=== PATIENT | male | born 1945 | race Caucasian/White ===

== ENCOUNTER 2016-08-14 13:16 | Observation (INO) ==
--- NOTE | 2016-08-14 14:38 | Emergency Department Note ---
START Narrative - START START: I examined this patient and my medical decision-making was reviewed with the PRINT DESIGNER/PA/Advanced Practice Nurse/Resident Physician. I agree with the documented findings, disposition and treatment plan as described except to the extent set forth below. ED attending note: Patient seen with emergency medicine resident Dr. Castro. Please see a copy of his note for details of the H&P, evaluation, management and disposition of this patient. We independently had [id number] contact with the patient Briefly 70-year-old male negative stress test about a year or so ago, presents with cough and some chest discomfort. Physical examination is benign. EKG shows ischemic changes. Troponin chest x-ray are pending. Disposition pending. Patient stable.
[2016-08-14 15:09] LABS: BUN/Creatinine Ratio 17 (6-26); Blood Urea Nitrogen 14 mg/dL (8-26); Calcium 8.7 mg/dL (8.6-10.8); Carbon Dioxide 25 mEq/L (19-29); Chloride 106 mEq/L (98-109); Glucose 112 mg/dL (70-99); Osmolality,Calculated 287 (280-300); Potassium 3.9 mEq/L (3.5-4.5); Sodium 138 mEq/L (136-145); eGFR For African Americans > 60 (> 60); eGFR For Non-African Americans > 60 (> 60)
--- NOTE | 2016-08-14 16:15 | Emergency Department Note ---
Disposition Clinical Impression: Upper respiratory infection Qualifiers: URI type: unspecified URI Qualified Code(s): J06.9 - Acute upper respiratory infection, unspecified Chest pain Qualifiers: Chest pain type: unspecified Qualified Code(s): R07.9 - Chest pain, unspecified Disposition: Admitted As Inpatient Condition: Fair Referrals: NO,PCP [Primary Care Provider] - Forms: ED Satisfaction Letter Time of Disposition: 17:04 URI/Sore Throat HPI - General Chief Complaint: ED Upper Respiratory Infection Stated Complaint: COUGH Source: patient Limitations: no limitations Nursing Notes Reviewed: Yes Vital Signs Reviewed: Yes - History of Present Illness HPI Narrative: A 70 year old male presents to the ED with the complaint of a cough that began about a week ago. He states that in the last two or three days the cough has gotten worse, is coughing up more sputum, and he now has a sore throat. About an hour before he came into the ED, he states that he began to have chest pain. He states that he does have some abdominal pain. He denies nausea vomiting, diarrhea, and constipation. He has no shortness of breath and the chest pain is not worse with exertion. He has a history of HTN and hyperlipidemia but he has not been on medications for a while. Pt Subjective Complaint: cough, nasal congestion Onset (ago): week(s) Duration: gradually worsening Severity: moderate Improves with: nothing - Related Data Home Medications Medication Instructions Recorded Confirmed No Known Home Drugs 08/14/16 08/14/16 Allergies Allergy/AdvReac Type Severity Reaction Status Date / Time Penicillins Allergy Anaphylaxis Verified 08/14/16 13:18 All systems ED: reviewed and negative except as stated. URI PMH - Past Medical History Medical history: Reports: hypertension Psychiatric history: Reports: no psych history - Social History Smoking Status: Never smoker Alcohol use: Reports: none Drug use: Reports: none Physical Exam - General Limitations: no limitations General appearance: alert, in no apparent distress - Head Head exam: atraumatic, normocephalic, normal inspection - Eye Eye exam: Present: normal appearance, PERRL, EOMI - ENT ENT exam: normal exam, normal oropharynx, mucous membranes moist - Neck Neck exam: Present: normal inspection, full ROM, trachea midline - Chest Chest inspection: Present: normal inspection, symmetric chest wall rise - Respiratory Respiratory exam: Present: normal lung sounds bilaterally - Cardiovascular Cardiovascular exam: Present: regular rate, normal rhythm, normal heart sounds - Abdominal Exam Abdominal exam: Present: soft, Non-Tender. Absent: tenderness, distention, guarding, rebound, rigidity - Extremities Exam Extremities exam: Present: normal inspection, full ROM. Absent: tenderness, pedal edema - Back Exam Back exam: Present: normal inspection, full ROM. Absent: tenderness - Neurological Exam Neurological exam: Present: alert, oriented X3 - Psychiatric Psychiatric exam: Present: normal affect, normal mood - Skin Skin exam: Present: warm, dry, intact, normal color Course Course Narrative: Patient seen and examined. Cough for the last few days along with some chest pain today. He is asymptomatic at this time. States only lasted for a few seconds. Past medical history of hypertension and hyperlipidemia for which he is supposed be on medication but has not been able to follow-up due to not being able to afford the co-pay. Cardio pulmonary workup initiated. - Reevaluation(s) Reevaluation #1: Labs, chest x-ray unremarkable. We will have the social secretary Aisha talk with him about his difficulties with healthcare access. Due to his poor follow-up as well as the chest pain he recently had and multiple prior episodes of chest pain in which sound more anginal, we will call hospitalist for admission for chest pain rule out ACS. His last stress test was 5-6 years ago and he has poor access to his healthcare. Time: 16:24 Vital Signs Temperature 97.8 F 08/14/16 13:18 Pulse Rate 93 08/14/16 13:18 Respiratory Rate 18 08/14/16 13:18 Blood Pressure 162/101 08/14/16 13:18 O2 Sat by Pulse Oximetry 95 08/14/16 13:18 Temperature 97.8 F 08/14/16 13:18 Pulse Rate 93 08/14/16 13:18 Respiratory Rate 18 08/14/16 13:18 Blood Pressure 162/101 08/14/16 13:18 O2 Sat by Pulse Oximetry 95 08/14/16 13:18 Oxygen Delivery Oxygen Delivery Room Air Upper Respiratory Infection - Medical Records Medical records reviewed: Yes I reviewed the patient's medical records. - Lab Data Lab results reviewed: Yes I reviewed the patient's lab results. Result diagrams: 08/14/16 14:42 Lab Results 08/14/16 08/14/16 Range/Units 14:42 14:42 Sodium 138 (136-145) mEq/L Potassium 3.9 (3.5-4.5) mEq/L Chloride 106 (98-109) mEq/L Carbon Dioxide 25 (19-29) mEq/L BUN 14 (8-26) mg/dL Creatinine 0.84 (0.72-1.25) mg/dL Est GFR ( Amer) > 60 (> 60) Est GFR (Non-Af Amer) > 60 (> 60) BUN/Creatinine Ratio 17 (6-26) Glucose 112 H (70-99) mg/dL Calculated Osmolality 287 (280-300) Calcium 8.7 (8.6-10.8) mg/dL Troponin I 0.01 (0-0.03) ng/mL - Radiology Data Radiology results reviewed: Yes I reviewed the patient's radiology results. - EKG Data EKG attestation: Yes I reviewed and interpreted this EKG. EKG results narrative: EKG done at 1508 shows sinus rhythm with a rate of 69 beats per minute. No acute ST elevation or depression. There is T-wave inversion in leads 3 and V3. Normal axis. Right bundle branch block present. Unchanged from prior EKG done 12/05/2010.
[2016-08-14] MEDS ORDERED: Acetaminophen 325 MG TABLET PO PRN (19:50)
[2016-08-14] MEDS ORDERED: Ondansetron ODT 4 MG TAB.RAPDIS SL PRN (19:50)
[2016-08-14] MEDS ORDERED: Naloxone 0.4 MG/ML INJ IVP PRN (19:50)
--- NOTE | 2016-08-14 21:56 | Internal Med History&Physical ---
Date of Encounter: 08/14/16 Time of Encounter: 21:51 Assessment and Plan (1) Upper respiratory infection Current visit: Yes Status: Acute most likely viral supportive care Qualifiers: URI type: unspecified URI Qualified Code(s): J06.9 - Acute upper respiratory infection, unspecified (2) Chest pain Current visit: Yes Status: Acute stress test in AM check lipid panel and TSH Qualifiers: Chest pain type: unspecified Qualified Code(s): R07.9 - Chest pain, unspecified Internal Medicine - H&P: HPI Admitted From: Emergency Dept Plans for Post Hospital Care: Home History of present illness: Mr. Morocho is a 70 year old male with a past medical history of HTN and hyperlipidemia who presents with a one week history of cough. He was previously admitted with walking pneumonia with a similar cough. He had one episode of chest pain today that alsted a few minutes. The pain was substernal and pressure -like and lasted for a few minutes. It was not extertional and went away on its own. He has had increased mucus production with his cough and has just started having a sore throat today. Past Med Surg Social Fam HX - Past Medical History Medical history: hyperlipidemia, hypertension Psychiatric history: no psych history - Social History Smoking Status: Never smoker Smokeless Tobacco Status: No Alcohol use: none Drug use: none - Family History Mother Living Status: Cause of : old age Hx Family Cardiac Disorders: Yes (bradycardia) Hx Family Respiratory Disorders: No Hx Family Cancer: No Hx Family GI Disorders: No Hx Family Genitourinary Disorders: No Hx Family Endocrine Disorder: No Hx Family Musculoskeletal Disorders: No Hx Family Neuromuscular Disorders: No Hx Family Neurologic Disorders: No Hx Family HEENT Disorders: No Hx Family Autoimmune Disorders: No Hx Family Reproductive Disorders: No Hx Family Psychosocial Disorders: No Hx Family Medical Disorders: No Father Living Status: Cause of : blood infection Hx Family Cardiac Disorders: Yes (heart valve replacment) Hx Family Respiratory Disorders: No Hx Family Cancer: No Hx Family GI Disorders: No Hx Family Genitourinary Disorders: No Hx Family Endocrine Disorder: Yes (DM) Hx Family Musculoskeletal Disorders: No Hx Family Neuromuscular Disorders: No Hx Family Neurologic Disorders: No Hx Family HEENT Disorders: No Hx Family Autoimmune Disorders: No Hx Family Reproductive Disorders: No Hx Family Psychosocial Disorders: No Hx Family Medical Disorders: No Internal Medicine - H&P: Meds No Known Home Drugs 08/14/16 [History] Allergies Penicillins Allergy (Verified 08/14/16 13:18) Anaphylaxis All Systems PM: A 10-system review of systems was performed and is negative for pertinent findings except as documented above in the HPI. - Constitutional Constitutional: no chills, no fever(s), no night sweats - EENT Eyes: no change in vision, no discharge, no pain, no photophobia Ears: no ear discharge, no ear pain, no tinnitus Nose, mouth and throat: sore throat, no dysphagia, no nasal discharge, no neck pain - Cardiovascular Cardiovascular ROS IM: chest pain, no diaphoresis, no dyspnea, no lightheadedness, no palpitations, no syncope - Respiratory Respiratory: cough, no dyspnea, no wheezing, no excessive phlegm production - Gastrointestinal Gastrointestinal: no abdominal pain, no diarrhea, no hematemesis, no hematochezia, no melena, no nausea, no vomiting - Genitourinary Genitourinary ROS male: no dysuria - Musculoskeletal Musculoskeletal ROS IM: no arthralgias, no myalgias, no numbness, no tingling - Integumentary Integumentary IM: no rash, no unusual bruising - Neurological Neurological ROS: no confusion, no convulsions, no focal weakness, no numbness, no tingling, no tremor(s) - Hematologic/Lymphatic Hematologic/Lymphatic: no easy bruising - Constitutional Vitals: Temp Pulse Resp BP Pulse Ox 98.1 F 68 14 144/73 97 08/14/16 19:22 08/14/16 19:22 08/14/16 19:22 08/14/16 19:22 08/14/16 19:22 General appearance: Present: cooperative, A&O X 3, answers questions appropriately - Head Head exam: Present: atraumatic, normocephalic - Eye Eye exam: Present: PERRL, conjuntiva pink, sclera anicteric Pupils: Present: PERRL - Neck Neck exam general surgery: Present: supple, trachea midline. Absent: lymphadenopathy - Respiratory Respiratory exam: Present: CTAB. Absent: accessory muscle use, rales, rhonchi, wheezes - Cardiovascular Cardiovascular exam: Present: RRR, +S1, +S2. Absent: diastolic murmur, gallop, rubs, systolic murmur - GI/Abdominal GI/Abdominal exam: Present: normal bowel sounds, soft, no peritoneal signs. Absent: distended, tenderness - Extremities Exam Extremities exam: Present: warm, radial pulses palpable and symetrical. Absent : calf tenderness, cyanotic, pedal edema - Neurological Exam Neurological exam: Present: CN II-XII intact, oriented X3, no focal deficits. Absent: pronater drift, facial droop, speech deficit - Skin Skin exam: Present: dry, intact Internal Med - H&P Results - Labs CBC & Chem 7: 08/14/16 14:42 Labs: Cardiac Enzymes 08/14/16 Range/Units 20:25 Troponin I 0.00 (0-0.03) ng/mL
[2016-08-14] MEDS ORDERED: GuaiFENesin/Codeine Oral Soln 5 ML UDC PO PRN (21:58)
[2016-08-15 05:56] LABS: Chol/HDL Ratio 5.4 (0-4.9)
[2016-08-15 06:06] LABS: Thyroid Stimulating Hormone 2.584 mcIU/mL (0.350-4.840)
[2016-08-15] MEDS ORDERED: Regadenoson 0.4 MG/5 ML SYRINGE IVP ONE (06:48)
[2016-08-15 11:44] VITALS: BP 165/98
--- NOTE | 2016-08-15 13:06 | Nuclear Medicine Stress Report ---
Regadenoson Nuclear Stress Name: Eduard Morocho Date of Study: 08/15/2016 Date: 1945 Ht: 68.0 in Medical Record#: [id number] Age: 70 Wt: 150.0 lb Gender: Male Order #: [id number] Location: [facility] Room: [facility] Supervising Provider: Albert Loo CNP Reading Physician: Caryn Sepulveda DO Ordering Physician: Mirella Alfonso CNP Primary Care Physician: Bashir Galloway DO Stress Technologist: Ralph Lewis, CASINO CAGE MANAGER, [facility] Electric Train Driver: Shawn Win Indications: Chest Pain Impression: Perfusion imaging was negative for ischemia or infarct. Pharmacologic ECG was negative for ischemia at the level of heart rate achieved. Gated EF = >70%. Stress Test Summary: Stress Test Type: Pharmacologic Regadenoson 0.4mg/5ml given IV Baseline Information: Initial Heart Rate: 85 Blood Pressure: 150/82 Stress Information: Stress Time: 4 min 00 sec Test Terminated Due to (primary): As per protocol Maximum Blood Pressure: 100/64 Maximum Heart Rate: 90 Percent Maximum Heart Rate Achieved: 60 Double Product: 9000 METS Reached: 1 Symptoms: Lightheadness, Nausea Nuclear Summary: SPECT myocardial perfusion imaging using Tc99m Sestamibi given intravenously was performed at rest and following cardiac stress testing. The resting images were obtained following initial dose of 10.5 mCi. Following stress an additional dose of 33.0 mCi was given at peak exercise or 30 seconds post regadenoson infusion. Medication Given: Time Medication Dose Units Route Findings: Stress Note * Resting ECG demonstrated normal sinus rhythm with RBBB. * Pharmacologic stress ECG is negative for ischemia at level of heart rate achieved. * No arrhythmias were noted during stress. * Patient had no chest pain during stress. Hemodynamic responses * Normal hemodynamic responses to pharmacologic stress. Study Quality * Study quality was fair. Vertical motion on planar images. Gated EF > 70% * Gated EF > 70%. Left Ventricle * The left ventricle is not dilated. TID * No evidence of transient ischemic dilatation. Lung Uptake * There is no evidence of increase lung uptake. NORMALS * Normal wall motion. * There is a small to medium sized fixed perfusion defect involving the basal and id inferior wall. Wall motion is normal in this area. Findings are consistent with artifact. * Other areas demonstrate normal rest and stress perfusion. Updated by Caryn Sepulveda on 08/15/2016 12:59:04 PM electronically signed on 08/15/2016 1:00:39 PM with status of Final
--- NOTE | 2016-08-15 13:49 | Discharge Summary ---
Date of Encounter: 08/15/16 Time of Encounter: 13:15 - Discharge Diagnosis (1) Chest pain Priority: Primary Status: Acute Comments: Chest x-ray negative. Troponins negative. Stress test negative. ACS ruled out. Likely related to upper respiratory tract infection. Qualifiers: Chest pain type: unspecified Qualified Code(s): R07.9 - Chest pain, unspecified (2) Upper respiratory infection Priority: Primary Status: Acute Qualifiers: URI type: unspecified URI Qualified Code(s): J06.9 - Acute upper respiratory infection, unspecified (3) HTN (hypertension) Priority: Secondary Status: Chronic Comments: Not on any medications at home, has not seen his primary care provider and several years. Started on lisinopril, recommend daily blood pressure checks and following up outpatient with his new primary care provider. (4) HLD (hyperlipidemia) Priority: Secondary Status: Chronic Comments: Borderline abnormal lipid profile, recommend low-cholesterol diet and follow-up outpatient. Patient stating he wanted to speak to his new primary care provider before initiation of a statin. - Discharge Medications Prescriptions: Guaifenesin [Guaifenesin ER] 600 mg PO BID PRN #20 tab.er.12h PRN Reason: Congestion Lisinopril [Zestril] 10 mg PO DAILY #30 tablet Home Medications: Guaifenesin [Guaifenesin ER] 600 mg PO BID PRN #20 tab.er.12h 08/15/16 [Rx] Lisinopril [Zestril] 10 mg PO DAILY #30 tablet 08/15/16 [Rx] Allergies/Adverse Reactions: Allergies Penicillins Allergy (Verified 08/14/16 13:18) Anaphylaxis Procedures/tests Complete & Pending: Procedures Performed prior 72 hours Category Date Time Status NM erica perf SPECT multi [NM] Routine Exams 08/14/16 22:54 Taken SP pharm nuclear stress Routine Y 08/15/16 07:50 Completed Date of admission: 08/14/16 17:32 Primary care physician: PCP NO Consults: 08/14/16 18:20 Consult to Prepared Foods Supervisor [CONS] Routine Reason for SW Consult: living will and advanced directives Discharging clinician: Mirella Alfonso Anticipated date of discharge: 08/15/16 (ACS ruled out) - Patient Status Disposition: Home, Self-Care Condition: Good Functional capacity at discharge: independent ambulation Overall status at discharge: patient is back to baseline - Discharge Instructions Follow Up With: Mounika Sapp BOTTLING ROOM WORKER [Advanced Practice Nurse] - 08/22/16 3:00 pm (Please bring your photo ID, insurance card, and all medications with your to your appointment. Please call 24 hours in advance if you have to cancel this appointment. Thank you! ) Additional Instructions: Follow-up with primary care provider as scheduled - Diet and Activity Activity: increase activity as tolerated Diet: low fat, low cholesterol, low salt diet Hospital course: Mr. Morocho is a 70 year old male with only past medical history of hypertension and hyperlipidemia who has not been on medication or seen a primary care provider in several years. He presented to the emergency department chief complaint cough 1 week. Patient stating the last time he had the symptoms, he was admitted to the hospital with a diagnosis of "walking pneumonia." Patient stating the pain was substernally located and pressure-like and lasted for a few minutes. Patient stating the pain resolved on its own without intervention. Patient also endorsed increased mucus production as well as a sore throat on the day of presentation. Workup in the emergency department unremarkable. Chest x-ray negative. Patient was admitted to the hospitalist service for further evaluation and management. Troponins were negative. Nuclear stress test negative for ischemia or infarct and revealed an ejection fraction greater than 70%. Acute coronary syndrome ruled out. Patient was noted to be hypertensive and started on lisinopril. His lipid profile was also abnormal however he wanted to speak to his new primary care provider prior to starting a statin. TSH normal. Patient is a non-/never smoker. On examination , his lungs were clear to auscultation bilaterally throughout this admission. Presentation consistent with upper respiratory tract infection and he was sent home on guaifenesin. He was discharged home in stable condition with close outpatient follow-up and daily blood pressure checks recommended. ITS Impressions Chest X-Ray 08/14/16 14:21 IMPRESSION: No significant findings in the chest. D/ / Felice Bravo MD / Felice rBavo MD Interpreting Provider: Felice Bravo MD Nuclear stress test impression: Perfusion imaging was negative for ischemia or infarct. Pharmacologic ECG was negative for ischemia at the level of heart rate achieved. Gated ejection fraction is greater than 70%. - Time Spent with Patient Total time spent providing and/or coordinating discharge services: - Constitutional Vitals: Temp Pulse Resp BP Pulse Ox 97.8 F 81 20 165/98 97 08/15/16 11:43 08/15/16 11:43 08/15/16 11:43 08/15/16 11:43 08/15/16 11:43 General appearance: Present: cooperative, A&O X 3, morbidly obese, no acute distress, answers questions appropriately - Head Head exam: Present: atraumatic, normocephalic - Eye Eye exam: Present: PERRL, conjuntiva pink, sclera anicteric Pupils: Present: PERRL - Neck Neck exam general surgery: Present: supple, trachea midline. Absent: lymphadenopathy - Respiratory Respiratory exam: Present: CTAB. Absent: accessory muscle use, decreased breath sounds, rales, respiratory distress, rhonchi, wheezes - Cardiovascular Cardiovascular exam: Present: RRR, +S1, +S2. Absent: diastolic murmur, gallop, rubs, systolic murmur - GI/Abdominal GI/Abdominal exam: Present: normal bowel sounds, soft, no peritoneal signs. Absent: distended, tenderness - Extremities Exam Extremities exam: Present: warm, radial pulses palpable and symetrical. Absent : calf tenderness, cyanotic, pedal edema - Neurological Exam Neurological exam: Present: alert, CN II-XII intact, normal gait, oriented X3, no focal deficits, strengths equal and symetr throughout. Absent: pronater drift, facial droop, speech deficit - Skin Skin exam: Present: dry, intact, normal color, warm
--- NOTE | 2016-08-15 17:20 | Electrocardiograph Report ---
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
== END 2016-08-15 14:46 | disposition home or self-care (01) ==
LOC: 3BNU 13:16 → EMEROO 13:16 → 3BNU 17:47
PROVIDERS: ADMIT Nurse Practitioner Family; ATTEND Nurse Practitioner Family